=== PATIENT | male | born 1995 | race Two or more races ===

== ENCOUNTER 2016-12-03 18:38 | Emergency (ER) | payer OTHER ==
[2016-12-03] MEDS ORDERED: traMADol HCL 50 MG TAB PO ONE (20:30)
[2016-12-03 21:59] VITALS: BP 104/47
== END 2016-12-03 22:10 | disposition home or self-care (01) ==
LOC: ER 18:43
DX: S20.219A Contusion of unspecified front wall of thorax, initial encounter (principal); F17.210 Nicotine dependence, cigarettes, uncomplicated; V49.49XA Driver injured in collision with other motor vehicles in traffic accident, initial encounter; Y93.89 Activity, other specified; Y99.8 Other external cause status; Y92.410 Unspecified street and highway as the place of occurrence of the external cause
CPT/HCPCS: 71120; 93005

== ENCOUNTER 2025-02-25 09:51 | Emergency (ER) | payer MEDICAID, OTHER ==
[~2025-02-25] VITALS: Ht 162.6 cm; Wt 76.0 kg
[2025-02-25] MEDS ORDERED: ACE3T PO (10:28)
[2025-02-25] MEDS ORDERED: IBUP-1455 PO (10:28)
[2025-02-25] MEDS ORDERED: AMOX500T3 PO (10:28)
--- NOTE | 2025-02-25 10:29 | ED.PDOC ---
Eye-HPI HPI Comments 29-year-old male with no past medical history presents to the emergency department with a chief complaint of tooth pain onset 3 days. Patient states he began tooth pain, LT upper back tooth 4 days ago. He tried calling Dentist office, was told next available appointment was in 1 month, last dentist appointment was 1 year ago. Pain worsens with chewing. No other symptoms or modifying factors present at this time. Denies fevers, chills Denies nausea, vomiting Denies headache Denies chest pain, shortness of breath Chief Complaint: Tooth Pain Time Seen by MD: 10:20 Primary Care Provider: UNK Reviewed Notes: Medications, Allergies Allergies: Coded Allergies: NO KNOWN ALLERGIES (Unverified , 02/25/25) Home Meds Active Scripts Ibuprofen Micronized (Ibuprofen) 800 Mg Tab, 800 MG PO Q8HP PRN for 10 Days, #30 TAB 0 Refills Prov:ROSLYN BEJARANO NP 02/25/25 Acetaminophen W/ Codeine (Tylenol W/Cod #3) 1 Tab Tb, 1 TAB PO Q6HP PRN for 2 D ays, #8 TAB 0 Refills Prov:ROSLYN BEJARANO NP 02/25/25 Amoxicillin Trihydrate (Amoxicillin) 500 Mg Tab, 1 TAB PO BID for 10 Days, #20 TAB 0 Refills Prov:ROSLYN BEJARANO NP 02/25/25 Information Source: Patient Mode of Arrival: Ambulatory Past Medical History PAST MEDICAL HISTORY: Denies Surgical History: Denies all surgeries Family History Family History: Unknown Social History Smoker: Less Than 1 Pack/Day Alcohol: Denies ETOH Use Drugs: Denies Drug Use Lives In: Home All Other Systems: Reviewed and Negative (as per HPI) Physical Exam General Appearance: Normal HEENT: Normal ENT Inspection, Pharynx Normal, TMs Normal, Other (localized pain to approximately tooth number 27, tooth intact with no signs of dental caries or chipped nooth, no surrounding gingivitis, MMM, airway intact) Neck: Full Range of Motion, Non-Tender, Normal, Normal Inspection Respiratory: Chest Non-Tender, Lungs Clear, No Accessory Muscle Use, No Respiratory Distress, Normal Breath Sounds Cardiovascular: No Murmur, No Gallop, Regular Rate/Rhythm Breast Exam: Deferred Gastrointestinal: No Organomegaly, Non Tender, No Pulsatile Mass, Normal Bowel Sounds, Soft Genitalia: Deferred Pelvic: Deferred Rectal: Deferred Extremities: No calf tenderness, Normal capillary refill, Normal inspection, Normal range of motion, Non-tender, No pedal edema Musculoskeletal : Apperance: Normal Neurologic: Alert, plant protection superintendent II-XII nml as Tested, No Motor Deficits, Normal Affect, Normal Mood, No Sensory Deficits Cerebellar Function: Normal Reflexes: Normal Skin: Dry, Normal Color, Warm Lymphatic: No Adenopathy Was a procedure done? Was a procedure done?: No EENT DIFF Eye: Other X-Ray, Labs, Meds, VS Vital Signs Date Time Temp Pulse Resp B/P (MAP) Pulse Ox O2 Delivery O2 Flow Rate FiO2 02/25/25 10:40 98.4 89 18 139/78 (98) 98 98.4 02/25/25 10:40 89 16 98 Room Air 02/25/25 09:54 97.6 66 15 140/53 95 97.6 X-Ray, Labs, Meds, VS Comment 29-year-old male with no past medical history presents to the emergency [facility] with a chief complaint of tooth pain onset 3 days. Afebrile, vitals within normal limits. Exam as above and airway fully patent and in no respiratory distress. The patient has no neck swelling, no dysphonia or hoarseness, no lymphadenopathy. No trismus or swollen tongue to suggest Rayshawn's angina. No overt e/o peritonsillar abscess or retropharyngeal abscess. No overt e/o deep space infection; nontoxic appearing and tolerating PO. Non-focal neuro exam with low suspicion for [place]. No pain with percussion, low suspicion for periapical abscess. No mastoid tenderness so do not suspect mastoiditis and no pain with manipulation of ear to suggest otitis externa. Trial antibiotics with cautious return precautions discussed w/ full understanding. Checked the [employer] website, no history of narcotic use within the past year. Will prescribe [place] p.o. for pain management. Education provided on possible side effects of medication including drowsiness, nausea, respiratory distress, etc. Do not drive, operate heavy machinery or make legal decisions while taking medication. Follow-up with your PMD within 24 to 48 hours. Additional MDM Review of External, Non-ED records: External records reviewed. Discussion with independent historian (EMS, family) history obtained from the patient/parents (if applicable) at bedside Chronic conditions affecting care: None Social determinants of health affecting care: cigarettes Consideration of admission (observation or admission): I considered escalation of care to admission for this patient, however given the reassuring workup, the patient is safe for outpatient management. Time of 1ST Reevaluation: 10:50 Reevaluation 1ST: Improved Patient Education/Counseling: Diagnosis, Treatment Family Education/Counseling: No Family Present SEPSIS Sepsis Screen Date sepsis recognized/suspect: Feb 25, 2025 Time Sepsis recognized/suspect: 954 Recent Procedure: No On Antibiotic Therapy: No Respiratory Rate >20: No Heart Rate >90: No Temp<36 C (96.8 F) or >38.3 C: No SBP <90 or MAP <65 mmHG: No New Acute Mental Status Change: No Is the patient on CPAP, BIPAP,: No Vital Signs Date Time Temp Pulse Resp B/P (MAP) Pulse Ox O2 Delivery O2 Flow Rate FiO2 02/25/25 10:40 98.4 89 18 139/78 (98) 98 98.4 02/25/25 10:40 89 16 98 Room Air 02/25/25 09:54 97.6 66 15 140/53 95 97.6 Departure 1 Departure Time of Disposition: 10:28 Impression: Primary Impression: Tooth pain Disposition: HOME / SELF CARE / HOMELESS Condition: Stable Additional Instructions: Discharge Note: Continue on your medications. Do not drive when taking narcotics. Drink plenty of fluids. Follow up with your primary Dentist. Take your prescriptions as ordered. If your condition becomes worse call and follow up with your primary Dr. for instructions or return to the ER if needed. Thank you for visiting [facility]. e-Prescriptions Ibuprofen Micronized (Ibuprofen) 800 Mg Tab 800 MG PO Q8HP PRN for 10 Days, #30 TAB 0 Refills Prov: ROSLYN BEJARANO ASSOCIATE DIRECTOR 02/25/25 Acetaminophen W/ Codeine (Tylenol W/Cod #3) 1 Tab Tb 1 TAB PO Q6HP PRN for 2 Days, #8 TAB 0 Refills Prov: ROSLYN BEJARANO ASSOCIATE DIRECTOR 02/25/25 Amoxicillin Trihydrate (Amoxicillin) 500 Mg Tab 1 TAB PO BID for 10 Days, #20 TAB 0 Refills Prov: ROSLYN BEJARANO ASSOCIATE DIRECTOR 02/25/25 Discharged With: Self Critical Care Note Critical Care Time?: No Stability Stability form required: No Heart Score Heart Score: Heart Score Response (Comments) Value History N/A 0 EKG N/A 0 Age N/A 0 Risk Factors N/A 0 Troponin N/A 0 Total 0 I personally scribed for ROSLYN BEJARANO NP ([email or web address]) on 02/25/25 at 10:29. Electronically submitted by Melody Nance ([email or web address]). ROSLYN BEJARANO NP Feb 25, 2025 10:29
[2025-02-25 10:40] VITALS: BP 139/78; PULSE 89; RESP 16; TEMP 98.4; O2SAT 98
== END 2025-02-25 10:43 | disposition home or self-care (01) ==
LOC: ER 09:51
DX: K08.89 Other specified disorders of teeth and supporting structures (principal); F17.210 Nicotine dependence, cigarettes, uncomplicated